=== PATIENT | male | born 2000 | race Two or more races ===

== ENCOUNTER 2025-01-17 18:33 | Emergency (ER) | payer SELFPAY ==
[~2025-01-17] VITALS: Ht 177.8 cm; Wt 82.0 kg
[2025-01-17 20:24] LABS: BASOPHILS % 0.5 % (0.0-2.0); EOSINOPHILS % 0.3 % (0.0-5.0); HEMATOCRIT. 42.7 % (42.0-52.0); HEMOGLOBIN. 14.3 g/dL (14.0-18.0); LYMPHOCYTES % 12.3 % (20.0-50.0); MEAN CORPUSCULAR HEMOGLOBIN 29.9 pg (28.0-32.0); MEAN CORPUSCULAR HGB CONC 33.6 g/dL (31.0-37.0); MEAN CORPUSCULAR VOLUME 88.9 fL (80.0-94.0); MEAN PLATELET VOLUME 7.6 fl (7.4-10.4); MONOCYTES % 8.4 % (2.0-8.0); NEUTROPHILS % 78.5 % (40.0-76.0); PLATELET 238 x1000/uL (130-400); RED CELL DISTRIBUTION WIDTH 13.8 % (11.6-14.6); WHITE BLOOD COUNT 8.2 x1000/uL (4.5-11.0)
[2025-01-17 20:31] LABS: CHLORIDE 104 mEq/L (98-107); POTASSIUM 3.6 mEq/L (3.5-5.1); SODIUM 140 mEq/L (136-145)
[2025-01-17 20:32] LABS: CALCIUM 9.7 mg/dL (8.7-10.4); CARBON DIOXIDE 22 mEq/L (21-32)
[2025-01-17 20:37] LABS: CREATININE 1.2 mg/dL (0.6-1.3); GLUCOSE 79 mg/dL (70-105); UREA NITROGEN BLOOD 19 mg/dL (9-23)
[2025-01-17 20:38] LABS: ETHANOL BLOOD < 10 mg/dL (<10)
[2025-01-17 20:39] LABS: ACETAMINOPHEN < 2 ug/mL (10-30); ALANINE AMINOTRANSFERASE 24 IU/L (10-49); ALBUMIN 4.9 g/dL (3.2-4.8); ASPARTATE AMINOTRANSFERASE 31 IU/L (<34); BILIRUBIN DIRECT 0.4 mg/dL (<=3.0)
[2025-01-17 20:40] LABS: BILIRUBIN TOTAL 1.4 mg/dL (0.1-1.0); PROTEIN TOTAL 8.4 g/dL (6.0-8.3)
[2025-01-18] MEDS: SODIUM CHLORIDE 0.9% 1,000 ML IV ONE (00:25)
[2025-01-18 09:26] LABS: CLARITY URINE CLEAR (CLEAR); COLOR URINE DARK YELLOW (YELLOW); GLUCOSE URINE NEGATIVE (NEGATIVE); KETONES URINE 4+ (NEGATIVE); LEUKOCYTE ESTERASE URINE NEGATIVE (NEGATIVE); NITRITE URINE NEGATIVE (NEGATIVE); OCCULT BLOOD URINE TRACE (NEGATIVE); PROTEIN URINE 2+ (NEGATIVE); SPECIFIC GRAVITY URINE 1.037 (1.005-1.030)
[2025-01-18 09:48] LABS: BACTERIA URINE NONE SEEN; HYALINE CASTS URINE 0-5 /lpf; MUCUS URINE 1+ /lpf (NONE/TRACE); RBC URINE 0-2 /hpf (0-2); SQUAMOUS EPITHELIAL CELL URINE RARE /lpf (RARE/1+); WBC URINE 0-2 /hpf (0-2); YEAST URINE NONE SEEN
[2025-01-18 09:59] LABS: *AMPHETAMINES SCREEN URINE NEGATIVE (NEGATIVE); *BENZODIAZEPINES SCREEN URINE PRESUMPTIVE POSITIVE (NEGATIVE)
[2025-01-18 10:00] LABS: *BARBITURATES SCREEN URINE NEGATIVE (NEGATIVE); *COCAINE SCREEN URINE NEGATIVE (NEGATIVE); CANNABINOID URINE SCREEN PRESUMPTIVE POSITIVE (NEGATIVE); ECSTASY MDMA SCREEN URINE NEGATIVE (NEGATIVE); METHADONE URINE SCREEN NEGATIVE (NEGATIVE); OPIATES URINE SCREEN NEGATIVE (NEGATIVE); PHENCYCLIDINE URINE SCREEN NEGATIVE (NEGATIVE)
[2025-01-18] MEDS ORDERED: OLANZAPINE 10 MG/VIAL IM ONE (11:00)
[2025-01-18] MEDS ORDERED: LORAZEPAM 2MG/ML INJ IM ONE (11:00)
[2025-01-18] MEDS: LORAZEPAM 2MG/ML UD SYRINGE IM NR (11:01)
[2025-01-18] MEDS: OLANZAPINE 10 MG/VIAL IM NR (12:03)
[2025-01-19] MEDS: OLANZAPINE 5MG TABLET ODT PO SCH (10:21)
[2025-01-19] MEDS: LORAZEPAM 1MG TABLET PO ONE (11:00)
[2025-01-19] MEDS ORDERED: LORAZEPAM 2MG/ML INJ IM ONE (12:00)
[2025-01-19] MEDS: DIPHENHYDRAMINE 50MG/ML VIAL IM ONE (12:32)
[2025-01-19] MEDS: LORAZEPAM 2MG/ML UD SYRINGE IM NR (12:32)
[2025-01-19] MEDS ORDERED: OLANZAPINE 5MG TABLET ODT PO SCH (21:00)
[2025-01-20] MEDS ORDERED: LORAZEPAM 2MG/ML INJ IM ONE (08:30)
[2025-01-20] MEDS: OLANZAPINE 10 MG/VIAL IM ONE (08:48)
[2025-01-20] MEDS: LORAZEPAM 2MG/ML UD SYRINGE IM NR (08:48)
[2025-01-20 08:50] VITALS: O2SAT 98
[2025-01-20] MEDS: LORAZEPAM 1MG TABLET PO ONE (15:31)
[2025-01-20 15:40] VITALS: BP 135/87; PULSE 104; RESP 18; TEMP 37.2; O2SAT 100
== END 2025-01-20 16:04 ==
LOC: ER 18:33 → EDBD 18:33 → ER 01-18 22:45
DX: F32.A Depression, unspecified (principal); F41.9 Anxiety disorder, unspecified; Z20.822 Contact with and (suspected) exposure to COVID-19; Z79.899 Other long term (current) drug therapy
CPT/HCPCS: 80076; 80305; 80048; 81003; 80307; 80329; 80320; 85025; 36415; 93005; 99291; 87426; 96372 ×3; J7030; J3490 ×2; J2060 ×3; J1200; Z7610; 99285; G0480